=== PATIENT | female | born 1990 | race African-American/Black ===

== ENCOUNTER 2020-09-12 22:00 | Emergency (ER) | payer OTHER, SELFPAY ==
[~2020-09-12] VITALS: Ht 147.3 cm; Wt 67.1 kg
[2020-09-13] MEDS ORDERED: NS 1,000 ML IV ONE (00:30)
[2020-09-13] MEDS ORDERED: ACETAMINOPHEN 325 MG TAB PO ONE (00:30)
[2020-09-13 00:52] LABS: BASO % 0.3 % (0.0-1.0); EOS # 0.4 10^3/uL (0.0-0.5); EOS % 3.1 % (0.0-3.0); HEMATOCRIT 39.9 % (36.0-47.0); HEMOGLOBIN 12.9 g/dl (12.0-15.5); LYMPH # 1.3 10^3/uL (1.5-5.0); LYMPH % 11.2 % (24.0-44.0); MEAN CORPUSCULAR HEMOGLOBIN 26.9 pg (27.0-33.0); MEAN CORPUSCULAR HGB CONC 32.3 g/dl (32.0-36.5); MEAN CORPUSCULAR VOLUME 83.3 fl (80.0-96.0); MONO % 8.4 % (0.0-8.0); NEUTROPHILS # 9.2 10^3/uL (1.5-8.5); NEUTROPHILS % 76.7 % (36.0-66.0); PLATELET COUNT, AUTOMATED 288 10^3/uL (150-450); RED BLOOD COUNT 4.79 10^6/uL (4.00-5.40)
[2020-09-13 01:20] LABS: HCG, SERUM QUALITATIVE NEGATIVE (NEGATIVE)
[2020-09-13 01:21] LABS: ALBUMIN 3.2 GM/DL (3.2-5.2); ALT/SGPT 18 U/L (12-78); BILIRUBIN,DIRECT < 0.1 MG/DL (0.0-0.2); BILIRUBIN,TOTAL 0.2 MG/DL (0.2-1.0); LIPASE 59 U/L (73-393); TOTAL PROTEIN 7.3 GM/DL (6.4-8.2)
[2020-09-13] MEDS ORDERED: ISOVUE-370 76% 100ML VIAL As Ordered ONE (01:36)
--- NOTE | 2020-09-13 01:51 | REPVR ---
PROCEDURE INFORMATION: Exam: CT Abdomen And Pelvis With Contrast Exam date and time: 09/13/2020 1:30 AM Age: 29 years old Clinical indication: Abdominal pain TECHNIQUE: Imaging protocol: Computed tomography of the abdomen and pelvis with contrast. Radiation optimization: All CT scans at this facility use at least one of these dose optimization techniques: automated exposure control; mA and/or kV adjustment per patient size (includes targeted exams where dose is matched to clinical indication); or iterative reconstruction. Contrast material: ISOVUE 370; Contrast volume: 100 ml; Contrast route: INTRAVENOUS (IV); COMPARISON: No relevant prior studies available. FINDINGS: Lungs: No suspicious mass or airspace process in the visualized lung bases. Liver: Liver appears normal with no focal abnormality aside from a 7 mm posterior right lobe cyst or hemangioma on axial image 34. Gallbladder and bile ducts: Gallbladder is present and shows no evidence of gallstone. Pancreas: Pancreas appears normal. No focal mass or peripancreatic inflammation. Spleen: Spleen appears homogeneous without focal mass. Adrenal glands: Adrenal glands are normal in appearance. Kidneys and ureters: Kidneys appear normal, with no stone, solid mass or hydronephrosis. Stomach and bowel: No evidence of small bowel obstruction. Multiple fluid-filled loops of nondilated bowel with enhancing mucosa are present. No evidence of acute diverticulitis. Appendix: Normal caliber appendix is identified, with no adjacent inflammation. Intraperitoneal space: No pneumoperitoneum. Vasculature: No aortic aneurysm. Main portal and splenic veins enhance normally. Lymph nodes: . No enlarged lymph nodes. Urinary bladder: Urinary bladder appears normal. Reproductive: Female reproductive organs appear unremarkable. Tampon is present within the vagina. Bones/joints: Bony structures show no acute fracture or destructive process. Soft tissues: No concerning focal abnormality of the extra-abdominal and pelvic soft tissues. IMPRESSION: Pattern of small bowel suggests the possibility of mild inflammatory or infectious enteritis without obstruction. Electronically signed by: Lasha Heath On 09/13/2020 01:51:34 AM
[2020-09-13 02:13] VITALS: BP 112/74
[2020-09-13 03:41] LABS: CHLAMYDIA DNA AMPLIFICATION POSITIVE (NEGATIVE); GC DNA AMPLIFICATION NEGATIVE (NEGATIVE)
[2020-09-14] MEDS ORDERED: METR-265 PO (13:34)
--- NOTE | 2020-09-14 14:36 | ED PDOC ---
Post-Departure Follow-Up Patient had lab test for C. trachomatis that came back positive. I called a scri pt into her pharmacy and then tried to call her but when printed up her information there was no phone number. I went to registration to try to get a good contact for her and they stated she was not registered. I attempted to call the pharmacy she gave to see if I could get her contact information but she has never used that pharmacy. Registration came back to me with a number they found on one of her old records [phone]. I called this number and there was no answer. I will pass the information onto the charge nurse to see if we can mail her a notification and try to call again next shift. STAN HAHN PA-C Sep 14, 2020 14:35
== END 2020-09-13 03:14 | disposition home or self-care (01) ==
LOC: M ED 22:00
DX: A74.9 Chlamydial infection, unspecified (principal); K52.9 Noninfective gastroenteritis and colitis, unspecified; E86.0 Dehydration
CPT/HCPCS: 74177; 80047; 80076; 81001; 83605; 83690; 84703; 85025; 87210; 87661; 96360; 96361; 99283; Q9967

== ENCOUNTER 2020-09-17 19:24 | Emergency (ER) | payer OTHER, SELFPAY ==
[~2020-09-17] VITALS: Ht 149.9 cm; Wt 68.4 kg
[~2020-09-17 19:24] MED LIST: METR-265 PO
[2020-09-17 20:20] LABS: BASO % 0.4 % (0.0-1.0); EOS # 0.4 10^3/uL (0.0-0.5); HEMATOCRIT 38.8 % (36.0-47.0); HEMOGLOBIN 12.5 g/dl (12.0-15.5); LYMPH # 1.5 10^3/uL (1.5-5.0); LYMPH % 13.9 % (24.0-44.0); MEAN CORPUSCULAR HEMOGLOBIN 26.7 pg (27.0-33.0); MEAN CORPUSCULAR HGB CONC 32.2 g/dl (32.0-36.5); MEAN CORPUSCULAR VOLUME 82.9 fl (80.0-96.0); MONO # 0.7 10^3/uL (0.0-0.8); MONO % 6.3 % (2.0-8.0); NEUTROPHILS # 8.2 10^3/uL (1.5-8.5); PLATELET COUNT, AUTOMATED 389 10^3/uL (150-450); RED BLOOD COUNT 4.68 10^6/uL (4.00-5.40); WHITE BLOOD COUNT 10.9 10^3/uL (4.0-10.0)
[2020-09-17 20:38] LABS: ALBUMIN 2.9 GM/DL (3.2-5.2); ALT/SGPT 13 U/L (12-78); BILIRUBIN,DIRECT < 0.1 MG/DL (0.0-0.2); BILIRUBIN,TOTAL < 0.1 MG/DL (0.2-1.0); LIPASE 89 U/L (73-393); TOTAL PROTEIN 7.4 GM/DL (6.4-8.2)
--- NOTE | 2020-09-17 20:38 | REPVR ---
PROCEDURE INFORMATION: Exam: US Abdomen, Limited; Right Upper Quadrant Exam date and time: 09/17/2020 8:26 PM Age: 29 years old Clinical indication: Abdominal pain; Epigastric; Additional info: Ruq pain TECHNIQUE: Imaging protocol: US abdomen. Real time ultrasound with image documentation. Limited exam focused on the right upper quadrant. COMPARISON: CT ABD/PEL W/IV CONTRAST ONLY 09/13/2020 1:29 AM FINDINGS: Liver: 1.2 x 0.8 x 1.2 cm echogenic focus in the right lobe of the liver consistent with a hemangioma. Liver otherwise unremarkable. Gallbladder: Gallbladder is contracted patient reports nonfasting status. Negative sonographic Hoffman sign. Common bile duct: Normal. No stones. No dilation. Pancreas: Limited visualization of the pancreas which is grossly unremarkable. Right kidney: Right kidney measures 10.4 x 4.7 x 5.8 cm. IMPRESSION: 1. Small echogenic focus in the right lobe of the liver consistent with a hemangioma. 2. Contracted gallbladder as described above. If there is a strong index of suspicion for gallbladder disease repeat gallbladder ultrasound recommended after the patient has had a suitable fasting interval. 3. Suboptimally visualized pancreas. Electronically signed by: Eric Cedillo On 09/17/2020 20:39:00 PM
--- NOTE | 2020-09-17 21:01 | REPVR ---
PROCEDURE INFORMATION: Exam: XR Right Ribs with PA Chest, 3 Views Exam date and time: 09/17/2020 7:53 PM Age: 29 years old Clinical indication: Other: Right rib pain TECHNIQUE: Imaging protocol: XR Right ribs 3 views with PA chest. COMPARISON: No relevant prior studies available. FINDINGS: Lungs: Unremarkable. No consolidation. Pleural spaces: Unremarkable. No pleural effusion. No pneumothorax. Heart/Mediastinum: Unremarkable. No cardiomegaly. Bones/joints: Unremarkable. IMPRESSION: No acute findings. Electronically signed by: Eric Cedillo On 09/17/2020 21:01:47 PM
[2020-09-17 21:39] VITALS: BP 122/78
--- NOTE | 2020-09-19 08:27 | ED PDOC ---
Post-Departure Follow-Up certified letter sent to pt re formal read of [facility] - no pcp listed. [facility] pcp name and fax for fu., if no pcp refer [facility] - give pt number and fax there for fu Kiersten Acuna MD Sep 19, 2020 08:27
== END 2020-09-17 21:46 | disposition home or self-care (01) ==
LOC: M ED 19:24
DX: R10.11 Right upper quadrant pain (principal); Z87.42 Personal history of other diseases of the female genital tract; R93.2 Abnormal findings on diagnostic imaging of liver and biliary tract

== ENCOUNTER → 2021-05-09 | Outpatient (CLI) | payer OTHER ==
--- NOTE | 2021-05-09 13:34 | REP ---
INDICATION: DYSMENORRHEA COMPARISON: None TECHNIQUE: Transabdominal and transvaginal 1st trimester obstetrical ultrasound FINDINGS: Evaluation demonstrates gestational sac with yolk sac. No pole identified. Mean sac diameter of 9.5 mm corresponds to 5 weeks 3 days gestational age. Bilateral maternal ovaries are normal. No significant pelvic free fluid or adnexal mass lesion. IMPRESSION: Differential diagnosis includes early and blighted ovum. Correlation with serial HCG levels and repeat ultrasound may be warranted. <Electronically signed by Mac Arechiga > 05/09/21 [id number]
== END ==
LOC: M WHC 11:40
PROVIDERS: ATTEND Nurse Practitioner Family
DX: N94.6 Dysmenorrhea, unspecified (principal)

== ENCOUNTER → 2021-08-10 | Outpatient (REF) | LOC: M LABSMTC 12:30 | PROVIDERS: ATTEND Pediatrics | DX: Z20.822 Contact with and (suspected) exposure to COVID-19 (principal) ==

== ENCOUNTER → 2021-09-18 | Outpatient (REF) | payer OTHER | LOC: M SFHCWAGY 16:47 | PROVIDERS: ATTEND Obstetrics & Gynecology | DX: R87.612 Low grade squamous intraepithelial lesion on cytologic smear of cervix (LGSIL) (principal) ==